=== PATIENT | male | born 1990 | race Caucasian/White ===

== ENCOUNTER 2016-07-24 18:31 | Emergency (ER) | payer MEDICAID ==
--- NOTE | 2016-07-24 18:54 | EDM.PDOC ---
ED UPPER BACK/NECK PAIN/INJURY - General Chief Complaint: Back Pain or Injury Stated Complaint: BACK PAIN Time Seen by Provider: 07/24/16 18:40 Source: Reports: Patient History Limitations: Reports: No limitations - History of Present Illness INITIAL COMMENTS - FREE TEXT/NARRATIVE: Avery was fishing since 8 am today, and developed some R shoulder girdle pain and stiffness after casting. Sxs have slowly progressed, aggravated by movement , and improved with rest. There is no weakness or loss of sensation. He has tried no meds. - Related Data Allergies/ADRs: Allergies Allergy/AdvReac Type Severity Reaction Status Date / Time codeine Allergy Shaking Verified 07/24/16 18:42 Penicillins Allergy Hives Verified 07/24/16 18:42 Home Meds: Home Meds NK [No Known Home Meds] 07/24/16 [History] ED ROS GENERAL - Review of Systems Review Of Systems: See Below Constitutional: Reports: no symptoms HEENT: Reports: No symptoms Respiratory: Reports: No Symptoms Cardiovascular: Reports: No symptoms Endocrine: Reports: no symptoms GI/Abdominal: Reports: No symptoms : Reports: no symptoms Musculoskeletal: Reports: shoulder pain (right) Skin: Reports: no symptoms Neurological: Reports: No Symptoms Psychiatric: Reports: No symptoms Hematologic/Lymphatic: Reports: no symptoms Immunologic: Reports: no symptoms ED EXAM, UPPER BACK/NECK PAIN - Physical Exam Exam: See Below Exam Limited By: No limitations General Appearance: alert, WD/WN, mild distress Head Exam: atraumatic, normocephalic Neck Exam: non-tender, full range of motion, normal alignment, normal inspection Cardiovascular/Respiratory: regular rate, rhythm Back Exam: normal inspection Extremities: normal inspection, limited range of motion (R shoulder to forward flexion, elevation, and abduction at endpoints) 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 He has a R shoulder girdle strain. Last Recorded V/S: Last Vital Signs Temp 36.4 C 07/24/16 18:44 Pulse 100 07/24/16 18:44 Resp 18 07/24/16 18:44 BP 121/70 07/24/16 18:44 Pulse Ox 100 07/24/16 18:44 Departure - Departure Time of Disposition: 18:50 Disposition: Home, Self-Care 01 Condition: fair Clinical Impression: Strain of right shoulder Qualifiers: Encounter type: initial encounter Qualified Code(s): S46.911A - Strain of unspecified muscle, fascia and tendon at shoulder and upper arm level, right arm , initial encounter Forms: ED Department Discharge - Problem List & Annotations (1) Strain of right shoulder SNOMED Code(s): 675064846 Code(s): S46.911A - STRAIN UNSP MUSC/FASC/TEND AT SHLDR/UP ARM, RIGHT ARM, INIT Status: Acute Current Visit: Yes Annotation/Comment:: I dispensed Flexeril 10 mg tid prn for spasm, and Toradol 10 mg q 6hr prn for pain, gentle ROM, and ice massage. Qualifiers: Encounter type: initial encounter Qualified Code(s): S46.911A - Strain of unspecified muscle, fascia and tendon at shoulder and upper arm level, right arm , initial encounter - Problem List Review Problem List Initiated/Reviewed/Updated: Yes - Assessment/Plan Plan: Follow up with PCP if needed.
[2016-07-24] MEDS ORDERED: Cyclobenzaprine 10 MG Tab PO ONE (19:09)
[2016-07-24] MEDS ORDERED: traMADol 50 MG Tab PO ONE (19:09)
[2016-07-24 19:21] VITALS: BP 120/70
== END 2016-07-24 19:23 | disposition home or self-care (01) ==
LOC: FB.ED 18:31
DX: S46.911A Strain of unspecified muscle, fascia and tendon at shoulder and upper arm level, right arm, initial encounter (principal); Z88.5 Allergy status to narcotic agent; Z88.0 Allergy status to penicillin; X58.XXXA Exposure to other specified factors, initial encounter
CPT/HCPCS: 99283; A9270-GY